=== PATIENT | male | born 2000 | race Caucasian/White ===

== ENCOUNTER 2018-03-10 01:58 | Emergency (ER) | payer SELFPAY ==
[~2018-03-10] VITALS: Ht 193 cm; Wt 122.5 kg
[2018-03-10] MEDS ORDERED: LACTATED RINGERS 1,000 ML IV ONE ×2 (02:07→03:16)
[2018-03-10] MEDS ORDERED: ONDANSETRON 4 MG/2 ML (SDV) Z0FRAN IVP ONE (02:15)
[2018-03-10 02:23] LABS: BASOPHILS % (AUTO) 0 % (0-10); EOSINOPHILS # (AUTO) 0.1 10^3/uL (0.0-0.3); EOSINOPHILS % (AUTO) 1 % (0-10); HEMATOCRIT 39 % (40-54); HEMOGLOBIN 14.4 G/DL (13.3-17.7); LYMPHOCYTES # (AUTO) 1.1 X 10^3 (1.0-4.0); LYMPHOCYTES % (AUTO) 18 % (12-44); MEAN CORPUSCULAR HEMOGLOBIN 32 PG (25-34); MEAN CORPUSCULAR HGB CONC 37 G/DL (32-36); MEAN CORPUSCULAR VOLUME 86 FL (80-99); MEAN PLATELET VOLUME 10.8 FL (7.4-10.4); MONOCYTES # (AUTO) 0.8 X 10^3 (0.0-1.0); MONOCYTES % (AUTO) 14 % (0-12); NEUTROPHILS % (AUTO) 67 % (42-75); PLATELET COUNT 141 10^3/uL (130-400); RED BLOOD COUNT 4.49 10^6/uL (4.35-5.85); RED CELL DISTRIBUTION WIDTH 12.2 % (10.0-14.5)
[2018-03-10 02:42] LABS: ALANINE AMINOTRANSFERASE 29 U/L (0-55); ALBUMIN 4.4 GM/DL (3.2-4.5); ALKALINE PHOSPHATASE 71 U/L (40-136); AMYLASE 33 U/L (25-125); BILIRUBIN,TOTAL 0.9 MG/DL (0.1-1.0); BUN/CREATININE RATIO 13; CALCIUM 9.9 MG/DL (8.5-10.1); CARBON DIOXIDE 22 MMOL/L (21-32); CHLORIDE 103 MMOL/L (98-107); CREATINE KINASE 130 U/L (30-200); CREATININE SERUM 1.09 MG/DL (0.60-1.30); GFR ESTIMATED > 60; GLUCOSE 92 MG/DL (70-105); LIPASE 19 U/L (8-78); MAGNESIUM 1.9 MG/DL (1.8-2.4); POTASSIUM 3.6 MMOL/L (3.6-5.0); SODIUM 137 MMOL/L (135-145); TOTAL PROTEIN 7.6 GM/DL (6.4-8.2)
[2018-03-10 03:02] LABS: CREATINE KINASE MB 1.3 NG/ML (<6.6); MYOGLOBIN SERUM 90.4 NG/ML (10.0-92.0)
[2018-03-10] MEDS ORDERED: AZITHROMYCIN 250 MG TAB (ZITHROMAX) PO STA (03:36)
[2018-03-10] MEDS ORDERED: cefTRIAXone INJECTION 1,000 MG in NS (IVPB) 50 ML IV ONE (03:45)
[2018-03-10 03:51] LABS: BILIRUBIN,URINE NEGATIVE (NEGATIVE); CLARITY,URINE CLEAR; COLOR,URINE YELLOW; GLUCOSE, URINE (UA) NEGATIVE (NEGATIVE); KETONES,URINE 2+ (NEGATIVE); LEUKOCYTE ESTERASE ,URINE 1+ (NEGATIVE); NITRITE,URINE NEGATIVE (NEGATIVE); PH,URINE 5 (5-9); PROTEIN,URINE 2+ (NEGATIVE); UROBILINOGEN,URINE NORMAL (NORMAL)
[2018-03-10 04:01] LABS: AMORPHOUS SEDIMENT,UR FEW AMOR URATES /LPF; BACTERIA,URINE TRACE /HPF; SQUAMOUS EPITHELIAL CELL,UR RARE /HPF; WBC,URINE RARE /HPF
[2018-03-10 04:02] LABS: AMPHETAMINE SCREEN, URINE NEGATIVE (NEGATIVE); BARBITURATE SCREEN URINE NEGATIVE (NEGATIVE); BENZODIAZEPINES SCREEN URINE NEGATIVE (NEGATIVE); CANNABINOID SCREEN, URINE NEGATIVE (NEGATIVE); COCAINE SCREEN URINE NEGATIVE (NEGATIVE); METHADONE STAT NEGATIVE (NEGATIVE); METHAMPHETAMINE SCREEN URINE S POSITIVE (NEGATIVE); OPIATE SCREEN URINE NEGATIVE (NEGATIVE); OXYCODONE STAT NEGATIVE (NEGATIVE); PROPOXYPHENE STAT NEGATIVE (NEGATIVE); TRICYCLIC ANTIDEPRESSANTS SCRE NEGATIVE (NEGATIVE)
[2018-03-10] MEDS ORDERED: AZIT500T PO (04:04)
[2018-03-10] MEDS ORDERED: GUAI1TBM19 PO (04:04)
[2018-03-10] MEDS ORDERED: CEFD300C3 PO (04:04)
--- NOTE | 2018-03-10 04:04 | ED General ---
General Chief Complaint: Cough/Cold/Flu Symptoms Stated Complaint: ALTERED MENTAL STATUS Source of Information: Patient, EMS History of Present Illness Date Seen by Provider: Mar 10, 2018 Time Seen by Provider: 01:55 Initial Comments PT ARRIVES VIA EMS--FROM [facility], WHERE PT WORKS EMS WAS CALLED FOR POSSIBLE SYNCOPAL EPISODE PT STATES HE HAS BEEN SICK FOR 4-5 DAYS STATES HE HAS BEEN NAUSEATED AND HAD A BAD COLD FOR THE LAST 4 DAYS--HAS BEEN TAKING ZYRTEC. HAS HAD SUBJECTIVE FEVER--WILL TAKE IBUPROFEN, THEN START SWEATING PROFUSELY, THEN FEVER WOULD GRADUALLY RETURN AND HE WOULD REPEAT THE PROCESS--HAS BEEN DOING THIS EVERY FEW HOURS FOR THE LAST 4 DAYS. HAS NOT TAKEN HIS TEMPERATURE AT ANY TIME. HAS HAD PRODUCTIVE COUGH WITH GREEN SPUTUM HAS HAD SHORTNESS OF BREATH ONLY WITH COUGH. PT HAS HISTORY OF ASTHMA AND USES INHALER PRN--HAS USED 2-3 TIMES IN LAST 4 DAYS, BUT NOT TODAY. C/O HEADACHE STATES HE HAS SLIGHT PAIN IN HIS CHEST NO PALPITATIONS PT HAS BEEN WEAK AND LIGHTHEADED, AND VERY TIRED THE LAST 4 DAYS--WORSE TONIGHT. 'STATES HE "JUST LAID DOWN" ON THE FLOOR TONIGHT AT WORK. A CUSTOMER IN THE STORE FOUND HIM "UNRESPONSIVE" ON THE FLOOR. PT DENIES ANY PAIN OR INJURY. NO INCONTINENCE. STATES HE HAS NOT BEEN EATING MUCH THE LAST 4 DAYS, BUT HAS BEEN DRINKING FLUIDS --STATES HE HAD 9-10 BOTTLES OF WATER TODAY AND 2 CUPS OF GATORADE. BUT HAS NOT EATEN TODAY. PT STATES HE HAS NAUSEA, BUT NO VOMITING. NO DIARRHEA STATES HE IS VOIDING A NORMAL AMOUNT. PCP: NONE Allergies and Home Medications Allergies Coded Allergies: amoxicillin (Verified Allergy, Unknown, 03/10/18) clavulanic acid (Verified Allergy, Unknown, 03/10/18) naproxen (Verified Allergy, Unknown, 03/10/18) Home Medications Azithromycin 500 Mg Tablet, 500 MG PO DAILY FOR INFECTION Prescribed by: CHARLES ZAYAS on 03/10/18403 Cefdinir 300 Mg Capsule, 300 MG PO BID Prescribed by: CHARLES ZAYAS on 03/10/18403 Guaifenesin/Dextromethorphan 1 Each Tbmp.12hr, 1 EACH PO BID Prescribed by: CHARLES ZAYAS on 03/10/18403 Patient Home Medication List Home Medication List Reviewed: Yes Review of Systems Constitutional: see HPI, chills, diaphoresis, dizziness, fever, malaise EENTM: see HPI, nose congestion; No ear pain, No blurred vision, No throat pain Respiratory: see HPI, cough, short of breath Cardiovascular: see HPI, chest pain; No edema, No palpitations; syncope; No vascular heart diseas; other (HX OF HTN) Gastrointestinal: see HPI; No abdominal pain, No constipation, No loss of appetite; nausea; No vomiting Genitourinary: no symptoms reported Musculoskeletal: no symptoms reported; No back pain, No neck pain Skin: no symptoms reported Psychiatric/Neurological: See HPI, Headache; Denies Numbness, Denies Paresthesia, Denies Seizure, Denies Tingling, Denies Tremors, Denies Weakness Hematologic/Lymphatic: No Symptoms Reported Immunological/Allergic: no symptoms reported Past Dprdxrq-Mwttyj-Basfct Hx Patient Social History Alcohol Use: Denies Use Recreational Drug Use: Yes (PT DENIES BUT UDS + FOR METHAMPHETAMINES ON ) Smoking Status: Never a Smoker 2nd Hand Smoke Exposure: No Recent Hopitalizations: No Physical Abuse: No Sexual Abuse: No Mistreated: No Fear: No Immunizations Up To Date Tetanus Booster (TDap): Unknown Seasonal Allergies Seasonal Allergies: No Past Medical History Surgeries: Yes (WISDOM TEETH) Respiratory: Yes Asthma Currently Using CPAP: No Currently Using BIPAP: No Cardiac: Yes (STATES "WORE A MONITOR WHEN YOUNGER, TOLD HAD MITRAL VALVE PROBLEM". HTN--STATES HE WAS ON BLOOD PRESSURE MEDICATION AT AGE 15, BUT WHEN HE TURNED 16 HE DID NOT SWITCH TO AN ADULT DR. AND SO HE SIMPLY QUIT TAKING THE MEDICATION AND HAS NOT SEEN A DR SINCE. HE HAD ARGUMENT WITH HIS PARENTS AT AGE 16 AND MOVED OUT OF THE HOUSE AND MOVED AWAY) Neurological: No Sexually Transmitted Disease: No Genitourinary: No Gastrointestinal: No Musculoskeletal: No Endocrine: No HEENT: No Cancer: No Psychosocial: No Nursing Suicide Risk Score: 0 Integumentary: Yes (HOSPITALIZED IN YOUTH FROM RASH OF UNKNOWN ORIGIN) Blood Disorders: No Physical Exam Vital Signs Vital Signs - First Documented 03/10/18 03/10/18 01:58 04:00 Temp 100.9 Pulse 113 Resp 14 B/P (MAP) 150/86 (107) Pulse Ox 99 O2 Delivery Room Air Capillary Refill : Height, Weight, BMI Height: '" Weight: lbs. oz. kg; BMI Method: General Appearance: No Apparent Distress, WD/WN, Other (MILDLY LETHARGIC. ) HEENT: PERRL/EOMI, TMs Normal, Normal ENT Inspection, Pharynx Normal, Other ( ORAL MUCOSA SLIGHTLY DRY; CLEAR POST NASAL DRAINGE. NO SINUS TENDERNESS. ) Neck: Full Range of Motion, Normal Inspection, Non Tender, Supple Respiratory: Normal Breath Sounds, No Accessory Muscle Use, No Respiratory Distress Cardiovascular: No Edema, No Gallop, No JVD, No Murmur, Normal Peripheral Pulses, Tachycardia (110'S) Gastrointestinal: Normal Bowel Sounds, No Organomegaly, No Pulsatile Mass, Non Tender, Soft Back: Normal Inspection, No CVA Tenderness, No Vertebral Tenderness Extremity: Normal Capillary Refill, Normal Inspection, Normal Range of Motion, Non Tender, No Calf Tenderness, No Pedal Edema Neurologic/Psychiatric: Alert, Oriented x3, No Motor/Sensory Deficits, 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 ) Focused Exam Lactate Level 03/10/18 02:08: Lactic Acid Level 1.26 Lactic Acid Level Progress/Results/Core Measures Suspected Sepsis SIRS Temperature: Pulse: Respiratory Rate: Laboratory Tests 03/10/18 02:08: White Blood Count 6.0 Blood Pressure / Mean: 03/10/18 02:08: Lactic Acid Level 1.26 Laboratory Tests 03/10/18 02:08: Creatinine 1.09, Platelet Count 141, Total Bilirubin 0.9 Results/Orders Lab Results Laboratory Tests Test 03/10/18 02:08 03/10/18 02:40 03/10/18 03:38 Range/Units White Blood Count 6.0 4.3-11.0 10^3/uL Red Blood Count 4.49 4.35-5.85 10^6/uL Hemoglobin 14.4 13.3-17.7 G/DL Hematocrit 39 L 40-54 % Mean Corpuscular Volume 86 80-99 FL Mean Corpuscular Hemoglobin 32 25-34 PG Mean Corpuscular Hemoglobin Concent 37 H 32-36 G/DL Red Cell Distribution Width 12.2 10.0-14.5 % Platelet Count 141 130-400 10^3/uL Mean Platelet Volume 10.8 H 7.4-10.4 FL Neutrophils (%) (Auto) 67 42-75 % Lymphocytes (%) (Auto) 18 12-44 % Monocytes (%) (Auto) 14 H 0-12 % Eosinophils (%) (Auto) 1 0-10 % Basophils (%) (Auto) 0 0-10 % Neutrophils # (Auto) 4.0 1.8-7.8 X 10^3 Lymphocytes # (Auto) 1.1 1.0-4.0 X 10^3 Monocytes # (Auto) 0.8 0.0-1.0 X 10^3 Eosinophils # (Auto) 0.1 0.0-0.3 10^3/uL Basophils # (Auto) 0.0 0.0-0.1 10^3/uL Sodium Level 137 135-145 MMOL/L Potassium Level 3.6 3.6-5.0 MMOL/L Chloride Level 103 98-107 MMOL/L Carbon Dioxide Level 22 21-32 MMOL/L Anion Gap 12 5-14 MMOL/L Blood Urea Nitrogen 14 7-18 MG/DL Creatinine 1.09 0.60-1.30 MG/DL Estimat Glomerular Filtration Rate > 60 BUN/Creatinine Ratio 13 Glucose Level 92 70-105 MG/DL Lactic Acid Level 1.26 0.50-2.00 MMOL/L Calcium Level 9.9 8.5-10.1 MG/DL Corrected Calcium 9.6 8.5-10.1 MG/DL Magnesium Level 1.9 1.8-2.4 MG/DL Total Bilirubin 0.9 0.1-1.0 MG/DL Aspartate Amino Transf (AST/SGOT) 25 5-34 U/L Alanine Aminotransferase (ALT/SGPT) 29 0-55 U/L Alkaline Phosphatase 71 40-136 U/L Total Creatine Kinase 130 30-200 U/L Creatine Kinase MB 1.3 <6.6 NG/ML Myoglobin 90.4 10.0-92.0 NG/ML Troponin I < 0.30 <0.30 NG/ML Total Protein 7.6 6.4-8.2 GM/DL Albumin 4.4 3.2-4.5 GM/DL Amylase Level 33 25-125 U/L Lipase 19 8-78 U/L TSH [place] Testing 1.30 0.35-4.94 UIU/ML Serum Alcohol < 10 <10 MG/DL Monoscreen NEGATIVE NEGATIVE Group A Streptococcus Screen NEGATIVE NEGATIVE Urine Color YELLOW Urine Clarity CLEAR Urine pH 5 5-9 Urine Specific [place] 1.020 1.016-1.022 Urine Protein 2+ H NEGATIVE Urine Glucose (UA) NEGATIVE NEGATIVE Urine Ketones 2+ H NEGATIVE Urine Nitrite NEGATIVE NEGATIVE Urine Bilirubin NEGATIVE NEGATIVE Urine Urobilinogen NORMAL NORMAL MG/DL Urine Leukocyte Esterase 1+ H NEGATIVE Urine RBC (Auto) NEGATIVE NEGATIVE Urine RBC NONE /HPF Urine WBC RARE /HPF Urine Squamous Epithelial Cells RARE /HPF Urine Crystals PRESENT H /LPF Urine Amorphous Sediment FEW BERNA URATES H /LPF Urine Bacteria TRACE /HPF Urine Casts NONE /LPF Urine Mucus SMALL H /LPF Urine Culture Indicated NO Urine Opiates Screen NEGATIVE NEGATIVE Urine Oxycodone Screen NEGATIVE NEGATIVE Urine Methadone Screen NEGATIVE NEGATIVE Urine Propoxyphene Screen NEGATIVE NEGATIVE Urine Barbiturates Screen NEGATIVE NEGATIVE Ur Tricyclic Antidepressants Screen NEGATIVE NEGATIVE Urine Phencyclidine Screen NEGATIVE NEGATIVE Urine Amphetamines Screen NEGATIVE NEGATIVE Urine Methamphetamines Screen POSITIVE H NEGATIVE Urine Benzodiazepines Screen NEGATIVE NEGATIVE Urine Cocaine Screen NEGATIVE NEGATIVE Urine Cannabinoids Screen NEGATIVE NEGATIVE My Orders Orders - CHARLES ZAYAS DO Saline Lock/Iv-Start (03/10/18 02:07) Ekg Tracing (03/10/18 02:07) Monitor-Rhythm Ecg Trace Only (03/10/18 02:07) Alcohol (03/10/18 02:07) Amylase (03/10/18 02:07) Cbc With Automated Diff (03/10/18 02:07) Comprehensive Metabolic Panel (03/10/18 02:07) Creatine Kinase (03/10/18 02:07) Creatine Kinase Mb (03/10/18 02:07) Drug Screen Stat (Urine) (03/10/18 02:07) Lactic Acid Analyzer (03/10/18 02:07) Lipase (03/10/18 02:07) Magnesium (03/10/18 02:07) Monotest (03/10/18 02:07) Rapid Strep A Screen (03/10/18 02:07) Thyroid Analyzer (03/10/18 02:07) Troponin I (03/10/18 02:07) Blood Culture (03/10/18 02:07) Myoglobin Serum (03/10/18 02:07) Chest Pa/Lat (2 View) (03/10/18 02:07) Saline Lock/Iv-Start (03/10/18 02:07) Lactated Ringers (Lr 1000 Ml Iv Solution (03/10/18 02:07) Ondansetron Injection (Zofran Injectio (03/10/18 02:15) Urinalysis (03/10/18 02:53) Saline Lock/Iv-Start (03/10/18 03:16) Lactated Ringers (Lr 1000 Ml Iv Solution (03/10/18 03:16) Ceftriaxone Injection (Rocephin Injectio (03/10/18 03:45) Azithromycin Tablet (Zithromax Tablet) (03/10/18 03:36) Medications Given in ED Current Medications Medications Dose Ordered Sig/Joseph Route Start Time Stop Time Status Last Admin Dose Admin Ceftriaxone Sodium 1000 mg/ Sodium Chloride 50 ml @ 100 mls/hr ONCE ONCE IV 03/10/18 03:45 03/10/18 04:14 DC 03/10/18 03:57 100 MLS/HR Lactated Ringer's 1,000 ml @ 0 mls/hr Q0M ONCE IV 03/10/18 02:07 03/10/18 02:11 DC 03/10/18 02:28 999 MLS/HR Lactated Ringer's 1,000 ml @ 0 mls/hr Q0M ONCE IV 03/10/18 03:16 03/10/18 03:18 DC 03/10/18 03:23 999 MLS/HR Ondansetron HCl 4 mg ONCE ONCE IVP 03/10/18 02:15 03/10/18 02:16 DC 03/10/18 02:28 4 MG Vital Signs/I&O 03/10/18 03/10/18 03/10/18 03/10/18 01:58 01:58 04:00 04:47 Temp 100.9 98.7 Pulse 113 102 108 108 123 Resp 14 B/P (MAP) 150/86 (107) 130/82 140/80 (100) 146/89 (108) 148/92 (110) Pulse Ox 99 98 O2 Delivery Room Air Room Air Room Air 03/10/18 05:13 Temp 98.7 Pulse 97 Resp 18 B/P (MAP) 131/71 (110) Pulse Ox 98 O2 Delivery Room Air Capillary Refill : Progress Note : Progress Note PT IS MUCH IMPROVED--PT AWAKE, ALERT, SMILING, NO LONGER APPEARS LETHARGIC. STATES HE FEELS MUCH BETTER AFTER IV FLUIDS NO HEADACHE OR NAUSEA NO SIGNIFICANT COUGH NOTED, AND NO CHEST PAIN OR SHORTNESS OF BREATH DURING ER STAY. ECG Initial ECG Impression Date: Mar 10, 2018 Initial ECG Impression Time: 02:29 Initial ECG Rate: 110 Initial ECG Rhythm: S.Tach Initial ECG Comparisson: No Previous ECG Available Diagnostic Imaging Comments CXR--RLL PNEUMONIA, PENDING RADIOLOGIST REVIEW Reviewed: Reviewed by Me Departure Impression Primary Impression: RLL pneumonia Additional Impressions: Dehydration Near syncope UDS POSITIVE FOR METHAMPHETAMINES Disposition: 01 HOME, SELF-CARE Condition: Improved Departure-Patient Inst. Referrals: UNKNOWN (PCP/Family) Primary Care Physician Patient Instructions: Dehydration, Adult (DC), Pneumonia, Adult (DC), Syncope ( Fainting) (DC) Add. Discharge Instructions: LOTS OF CLEAR LIQUIDS--WATER, BROTH, JELLO, GATORADE--DRINK ENOUGH SO YOU ARE URINATING EVERY 2-3 HOURS TYLENOL 1 GRAM AND MOTRIN 800 MG 4 TIMES A DAY FOR PAIN OR FEVER FOLLOW UP WITH DR OF CHOICE IN 2-3 DAYS FOR FURTHER CARE RETURN TO ER IF WORSE All discharge instructions reviewed with patient and/or family. Voiced understanding. Scripts Guaifenesin/Dextromethorphan (Mucinex Dm ER 1,200-60 mg Tab) 1 Each Tbmp.12hr 1 EACH PO BID for 10 Days, #20 EA Prov: CHARLES ZAYAS DO 03/10/18 Cefdinir (Cefdinir) 300 Mg Capsule 300 MG PO BID for FOR INFECTION, #20 CAP Prov: CHARLES ZAYAS DO 03/10/18 Azithromycin (Zithromax) 500 Mg Tablet 500 MG PO DAILY, #5 TAB FOR INFECTION Prov: CHARLES ZAYAS DO 03/10/18 Work/School Note: Local Medical Staff Listing, Work Release Form Date Seen in the Emergency Department: Mar 10, 2018 Restrictions: Need Release from Doctor CHARLES ZAYAS DO Mar 10, 2018 04:04
[2018-03-10 04:47] VITALS: BP_SYST 140; BP_SYST 146; BP_SYST 148; BP_DIAS 80; BP_DIAS 89; BP_DIAS 92
[2018-03-10 05:13] VITALS: BP 131/71
--- NOTE | 2018-03-10 07:35 | Diagnostic Imaging Report ---
EXAMINATION: CHEST (PA AND LATERAL) CLINICAL INDICATION: 18-year-old male, cough and congestion. Evaluation for pneumonia. COMPARISON: None. FINDINGS: Heart size and mediastinal contours are unremarkable. There is no identified pneumothorax. There is no pleural effusion. There are streaky opacities in the right lower lobe which may potentially reflect atelectasis and/or infiltrate. IMPRESSION: Streaky opacities in the right lower lobe which may potentially reflect atelectasis and/or infiltrate. Dictated by: Dictated on workstation # [id number]
== END 2018-03-10 05:13 | disposition home or self-care (01) ==
LOC: ER 02:01
DX: J18.1 Lobar pneumonia, unspecified organism (principal); E86.0 Dehydration; R55 Syncope and collapse; F15.10 Other stimulant abuse, uncomplicated; J45.909 Unspecified asthma, uncomplicated; Z88.1 Allergy status to other antibiotic agents; Z88.6 Allergy status to analgesic agent
CPT/HCPCS: 36415; 71046; 80053; 80306; 80320; 81000; 82150; 82550; 82553; 83605; 83690; 83735; 83874; 84443; 84484; 85025; 86308; 87040; 87077; 87430; 93005; 93041; 96361; 96365; 96375